=== PATIENT | male | born 1960 | race Caucasian/White ===

== ENCOUNTER 2023-12-01 07:49 | Day surgery (SDC) | payer MEDICAID ==
[2023-12-01] MEDS ORDERED: Sodium Chloride 0.9% 10 ML Syringe FLUSH PRN (08:00)
[2023-12-01] MEDS: Lactated Ringers 1,000 ML IV SCH (08:06)
[2023-12-01] MEDS ORDERED: Bacitracin/Neomycin/Polymyxin B Oint 0.9 GM U/D Packet ONE (08:23)
[2023-12-01] MEDS ORDERED: Bupivacaine 0.5% 30 ML SDV ONE (08:23)
[2023-12-01] MEDS ORDERED: Midazolam 1 MG/ML 2 ML SDV ONE (09:06)
[2023-12-01] MEDS ORDERED: Propofol 200 MG/20 ML SDV ONE (09:06)
[2023-12-01] MEDS ORDERED: Lidocaine 0.5% 50 ML SDV ONE (09:06)
[2023-12-01] MEDS: Bupivacaine 0.5% 30 ML SDV INJECT ONE (09:53)
[2023-12-01] MEDS: Bupivacaine 0.5% 10 ML SDV INFILT ONE ×2 (09:53)
== END 2023-12-01 12:50 | disposition home or self-care (01) ==
LOC: KA.SDS 07:49
PROVIDERS: ATTEND Surgery
DX: G56.01 Carpal tunnel syndrome, right upper limb (principal)
CPT/HCPCS: 01810; J0665; J2250; J2704; J3490; J7120